=== PATIENT | female | born 1955 | race Two or more races ===

== ENCOUNTER → 2019-12-13 14:52 | Outpatient (BNVA) | payer OTHER, SELFPAY | PROVIDERS: PCP Internal Medicine; Visit Provider Orthopaedic Surgery | DX: Z76.89 Persons encountering health services in other specified circumstances (principal) ==

== ENCOUNTER 2020-01-12 13:10 | Outpatient (REF) | payer OTHER, SELFPAY ==
--- NOTE | 2020-01-12 13:16 | XR_ITS ---
EXAMINATION: XR KNEE, BILATERAL XR KNEE, RIGHT CLINICAL INFORMATION: Primary osteoarthritis of the right knee COMPARISON: 11/25/2019 TECHNIQUE: AP standing view of both knees. Lateral and sunrise views of the right knee. FINDINGS: Right knee: No fracture or subluxation. There is chronic depression of the lateral tibial plateau. Moderate narrowing at the medial and lateral compartments. Severe patellofemoral compartment joint space narrowing laterally. There are prominent tricompartmental marginal osteophytes. No definite joint effusion. Left knee: No fracture or subluxation. Mild medial and lateral compartment joint space narrowing on this frontal view with marginal osteophytes present. 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 Tricompartmental degenerative changes as above.
--- NOTE | 2020-01-12 13:16 | XR_ITS ---
EXAMINATION: XR KNEE, BILATERAL XR KNEE, RIGHT CLINICAL INFORMATION: Primary osteoarthritis of the right knee COMPARISON: 11/25/2019 TECHNIQUE: AP standing view of both knees. Lateral and sunrise views of the right knee. FINDINGS: Right knee: No fracture or subluxation. There is chronic depression of the lateral tibial plateau. Moderate narrowing at the medial and lateral compartments. Severe patellofemoral compartment joint space narrowing laterally. There are prominent tricompartmental marginal osteophytes. No definite joint effusion. Left knee: No fracture or subluxation. Mild medial and lateral compartment joint space narrowing on this frontal view with marginal osteophytes present. 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 Tricompartmental degenerative changes as above.
== END 2020-01-12 13:11 | disposition home or self-care (01) ==
LOC: HO.HOSX 13:10
PROVIDERS: PCP Internal Medicine; Visit Provider Physician Assistant
DX: M17.11 Unilateral primary osteoarthritis, right knee (principal)
CPT/HCPCS: 73560; 73565

== ENCOUNTER 2020-01-16 07:55 | Inpatient (IN) | payer OTHER, SELFPAY ==
[2020-01-09 11:57] VITALS: BP 122/65; PULSE 70; RESP 16; O2SAT 97; BMI 28.5
--- NOTE | 2020-01-09 12:23 | P.CONAN_ITS ---
Documented by User: Marzena Henriquez 01/09/20 12:42 HPI - Anesthesia Eval Consult details Narrative: 64yo F for R TKA PCP cleared [facility] Past Medical History Medical History No significant past medical history Family History Family history of problems with anesthesia: No Surgical History Surgical History H/O colonoscopy History of bunionectomy S/P rotator cuff repair History of Problems with Anesthesia: No Social History Social History Household Members Other:: mother Are you a primary morning caregiver to a significant other at home: No Do you presently have visiting nurse or other home services: No Alcohol intake: current Alcohol intake frequency: holidays/special occasions only Smoking Status: Former smoker Smoking Quit Date: 1985 Use of substances other than those prescribed or required for medical reasons: No Have you been hit, kicked, punched, or otherwise hurt by someone within the past year? If so, by whom?: No Spiritual Healthcare Practices: none Pentecostalism Healthcare Practices: none Cultural Healthcare Practices: none Advance Directives: No Advance Directives Information Provided: No Advance Directives on File: No Recently lost weight without trying: No Narrative Narrative: No recent illness >4 mets with regular activity prior to injury Meds Allergies Allergy/AdvReac Type Severity Reaction Status Date / Time No Known Allergies Allergy Verified 01/09/20 12:12 Home Medications Medication Instructions Recorded Confirmed Type calcium carbonate-vitamin D3 1 tab PO BID 01/09/20 01/09/20 History [Calcium 600 + D(3)] zinc 50 mg PO DAILY 01/09/20 01/09/20 History Exam Exam Date and Time: January 09, 2020 1223 Height,Weight and Vital Signs: Height 5 ft 7 in Weight 82.5 kg Last Vital Signs Pulse 70 01/09/20 11:57 Resp 16 01/09/20 11:57 BP 122/65 01/09/20 11:57 Pulse Ox 97 01/09/20 11:57 Pertinent Lab Results Pertinent Lab Results: OUTSIDE LABS 01/04/20 CBC: WNL BUN/Creat: WNL Lytes: WNL A1C: 5.4% Narrative Narrative: EKG 01/04/20: SR@73 Airway Mallampati Class: I TM Dist: >3cm Neck ROM: Full Loose/Missing/Broken Teeth: Yes (Bilateral upper, 4&13) Heart: RRR Lungs: CTAB Assessment and Plan Assessment Anesthesia Assessment: Anesthesia Plan Discussed and PAT Visit Documented by User: Jacob Molina 01/16/20 09:42 PMFSH Past Medical History Medical History No significant past medical history Surgical History Surgical History H/O colonoscopy History of bunionectomy S/P rotator cuff repair Social History Social History Household Members Other:: mother Are you a primary morning caregiver to a significant other at home: No Do you presently have visiting nurse or other home services: No Alcohol intake: current Alcohol intake frequency: holidays/special occasions only Smoking Status: Former smoker Smoking Quit Date: 1985 Use of substances other than those prescribed or required for medical reasons: No Have you been hit, kicked, punched, or otherwise hurt by someone within the past year? If so, by whom?: No Spiritual Healthcare Practices: none Pentecostalism Healthcare Practices: none Cultural Healthcare Practices: none Advance Directives: No Advance Directives Information Provided: No Advance Directives on File: No Recently lost weight without trying: No Meds Allergies Allergy/AdvReac Type Severity Reaction Status Date / Time No Known Allergies Allergy Verified 01/09/20 12:12 Home Medications Medication Instructions Recorded Confirmed Type calcium carbonate-vitamin D3 1 tab PO BID 01/09/20 01/09/20 History [Calcium 600 + D(3)] zinc 50 mg PO DAILY 01/09/20 01/09/20 History Exam Airway Mallampati Class: III TM Dist: >3cm Neck ROM: Full Heart: RRR Assessment and Plan Assessment Anesthesia Assessment: Anesthesia Plan Discussed Final Anesthetic Review NPO: Yes ASA Class: I Final Preanesthetic Review: Consent Obtained/Reviewed Anesthetic Plan Anesthetic Plan: Spinal and Regional Block Disposition: Standard PACU
[2020-01-09 13:39] LABS: MANUAL DIFF FLAG NO
[2020-01-09 13:52] LABS: Basophils Percent Auto 0.4 % (0-2); Eosinophils Absolute Auto 0.1 X10*3/uL (0.0-0.4); Eosinophils Percent Auto 1.4 % (0-4); Hematocrit 39.5 % (37-47); Hemoglobin 12.4 g/dl (12.0-16.0); Imm Gran Abs Auto 0.01 X10*3/uL (0.00-0.03); Imm Gran Pct Auto 0.1 % (0.0-0.4); Lymphocytes Absolute Auto 2.8 X10*3/uL (1.2-4.9); Lymphocytes Percent Auto 39.8 % (20-40); Mean Corpuscular HGB Conc 31.4 g/dl (31.0-35.0); Mean Corpuscular Hemoglobin 26.3 pg (27.0-33.0); Mean Corpuscular Volume 83.9 fL (80-98); Mean Platelet Volume 11.4 fL (9.4-12.3); Monocytes Absolute Auto 0.5 X10*3/uL (0.1-1.2); Monocytes Percent Auto 6.8 % (2-11); Neutrophils Absolute Auto 3.6 X10*3/uL (2.0-8.3); Neutrophils Percent Auto 51.5 % (45-73); Platelet Count 215 X10*3/uL (160-400); Red Blood Count 4.71 X10*6/uL (4.20-5.50); Red Cell Distribution Width 12.9 % (11.0-16.0)
[2020-01-09 14:28] LABS: Anion Gap 13 (12-20); Blood Urea Nitrogen 13 mg/dL (9-16); Carbon Dioxide 26 mmol/L (22-29); Chloride 104 mmol/L (96-108); Estimated Glomerular Filt Rate > 60; Glucose Random 95 mg/dL (60-115); Sodium 139 mmol/L (135-145)
[2020-01-09 14:33] LABS: MRSA Nasal PCR NEGATIVE (Negative); SA Nasal PCR NEGATIVE (Negative)
[2020-01-16] VITALS (15 sets, daily range): BP systolic 84–124; BP diastolic 39–60; PULSE 59–73; RESP 14–18; TEMP 35.8–36.3; O2SAT 97–100
--- NOTE | 2020-01-16 07:32 | MHC.SHP ---
Pre-Procedural Eval Section A The patient is an INPATIENT: No Changes since office visit: Yes Cold of Flu in the past 2 weeks, Yes New Medical Problems, Yes Changes in Medication and Yes Patient answered all questions Section B Chief Complaint: Knee Osteoarthritis Allergies: Allergies Allergy/AdvReac Type Severity Reaction Status Date / Time No Known Allergies Allergy Verified 01/09/20 12:12 Plan Patient has been examined and remains a candidate for the planned procedure
[2020-01-16] MEDS: Gabapentin 600 MG TABLET PO (08:21)
[2020-01-16] MEDS: Lactated Ringers 1,000 ML 100 ML IVCONT ×2 (08:42→14:59)
[2020-01-16] MEDS: ceFAZolin Sodium/Dextrose,Iso 2 GM/50 ML PIGGYBACK IV ×2 (08:42→15:09)
[2020-01-16 08:47] LABS: COVID-19 Test Negative (Negative)
--- NOTE | 2020-01-16 11:36 | PM.PRCOR ---
Brief Operative Note Date of procedure: 01/16/20 Pre-op diagnosis: oa right knee post lateral tibial plateau fracture Post-op diagnosis: same Procedure: left tka with bone graft Anesthesia: regional and spinal Surgeon: Rick Guillory [employer] Panels: Connie Ann Estimated blood loss (mL): 50 Condition: stable Disposition: PACU
[2020-01-16] MEDS: Ketorolac Tromethamine 15 MG/ML VIAL IVPUSH ×2 (15:05→21:55)
[2020-01-16] MEDS: oxyCODONE HCl Immed Release 5 MG TABLET 10 MG PO ×2 (15:09→21:54)
[2020-01-16] MEDS: Acetaminophen 325 MG TABLET 650 MG PO ×2 (15:09→21:54)
--- NOTE | 2020-01-16 16:05 | MHC.CM.PN ---
NURSE WEIGHT CONTROL ENGINEER NOTE ELECTRONIC MEDICAL RECORD REVIEWED ALONG WITH CASE DISCUSSED WITH STAFF BASSAM , MET WITH PATIWENT AND EXPLAINED THE ROLE OF THE NURSE WEIGHT CONTROL ENGINEER IN THE TRANSITION FRO THE HOSPITA TO HOME , EDUCATED ABUT THE IMPRTANCE F THE HAVING A HEALTH CARE PROXY. 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 AFTER REVIEW OF THE VNA AGENCY LIST SHE CHOSE THE [facility]
[2020-01-17] VITALS (9 sets, daily range): BP systolic 92–103; BP diastolic 40–58; PULSE 67–80; RESP 16–78; TEMP 35.9–36.8; O2SAT 94–100
[2020-01-17] MEDS: Lactated Ringers 1,000 ML 100 ML IVCONT ×2 (00:46→21:32)
[2020-01-17] MEDS: Acetaminophen 325 MG TABLET 650 MG PO ×4 (03:20→21:31)
[2020-01-17] MEDS: oxyCODONE HCl Immed Release 5 MG TABLET 10 MG PO ×4 (03:24→21:31)
[2020-01-17] MEDS: Ketorolac Tromethamine 15 MG/ML VIAL IVPUSH ×4 (03:24→21:31)
--- NOTE | 2020-01-17 07:00 | XR_ITS ---
EXAMINATION: XR KNEE, RIGHT CLINICAL INFORMATION: Postoperative COMPARISON: 01/12/2020 TECHNIQUE: Two views of the right knee. FINDINGS: There is a total right knee arthroplasty. The distal femoral component articulates appropriately with the tibial plateau and patellar components. No periprosthetic lucency or fracture. Postoperative soft tissue gas is noted. Joint space gas present. Anterior skin ada. XR/XR knee RT 2V IMPRESSION: Total right knee arthroplasty in typical positioning and alignment.
[2020-01-17 07:03] LABS: Hematocrit 31.2 % (37-47); Hemoglobin 9.9 g/dl (12.0-16.0)
--- NOTE | 2020-01-17 07:12 | P.CDIC_ITS ---
CDI Concurrent Query Service Date: 01/17/20 Documentation Clarification: Please clarify if you are treating a proba ble/suspected/likely or confirmed: Please confirm laterality of procedure: Right TKA with bone graft Left TKA with bone graft PLEASE DO NOT DELETE/MODIFY EXISTING CONTENT Additional information is needed in order to code to the highest accuracy and appropriate Severity of Illness (SOI). Please clarify the information noted below in your progress notes and discharge summary. Risk Factors/Clinical Indicators/Treatments 64 year old female admitted for orthopedic surgery on 01/16/20. Per Brief Op Note: Pre-op Diagnosis: OA right knee post lateral tibial plateau fracture Post-op Diagnosis:same Procedure: Left TKA with bone graft CDS: Yamileth Mkceon RN Contact Number: [phone] Please Review the information above and exercise your independent professional judgment in responding to the query. If you concur, pleas document in the PROGRESS NOTES and DISCHARGE SUMMARY. If you do not agree with the query, please document in the query above. THIS QUERY IS PART OF THE PERMANENT MEDICAL RECORD
--- NOTE | 2020-01-17 09:26 | HO.POSTANES ---
Post Anesthesia Evaluation Post Anesthesia Evaluation Vital Signs: Vital Signs Temp Pulse Resp BP Pulse Ox 01/17/20 08:36 96.8 F 78 18 102/44 L 100 01/17/20 04:30 94/50 L 01/17/20 04:00 98.2 F 68 16 94 01/17/20 00:54 102/54 L 01/17/20 00:00 97.6 F 79 16 94/47 L 97 Anesthesia: Spinal Mental Status: Awake Pain Control: Satisfactory Nausea/Vomiting: None Hydration: Adequate Anesthesia-Related Issues: No Anes. Related Issues
--- NOTE | 2020-01-17 10:00 | OP_ITS ---
SURGEON: Rick Guillory MD PREOPERATIVE DIAGNOSIS: Osteoarthritis post lateral tibial plateau fracture, right knee. POSTOPERATIVE DIAGNOSIS: Osteoarthritis post lateral tibial plateau fracture, right knee. PROCEDURE PERFORMED: Right total knee arthroplasty - Ronak NexGen CR-Flex GSF size F right femur, 5 x 12 mm monoblock tibial component, 32 mm monoblock patellar component. ESTIMATED BLOOD LOSS: COMPLICATIONS: ANESTHESIA: ASSISTANTS: AARIT Alcazar. SPECIMENS: CLINICAL NOTE: This very pleasant lady comes in today in regard to her right knee. She suffered a tibial plateau fracture approximately two and a half months ago. It was a centrally depressed fracture on the lateral side. However, she had evidence of significant osteoarthritis and was already having problems with her knee, and therefore, it was elected not to fix the fracture, allow it to heal, and subsequently presents to do a total knee arthroplasty. Therefore after explaining the risks, benefits, and alternatives and answering all her questions, it was mutually agreed upon to carry out the following procedure. OPERATIVE DETAILS: Under a saphenous regional block and spinal anesthetic, the patient was placed supine on the operating table. Pneumatic tourniquet cuff was placed around the upper right thigh, inflated to 300 mmHg at the beginning of the case. The right knee was then prepped and draped in standard fashion with the right leg free. Surgical time-out was then performed, patient was identified, procedure confirmed, site confirmed. Medical analogy and history reviewed. Preoperative antibiotics given. Standard DVT prophylaxis in place. All other items were discussed and agreed upon. Tranexamic acid was given as well. Standard midline approach to the knee was carried out, taken down through subcutaneous tissues. Hemostasis was achieved along the way using electrocautery, brought down to the level of the extensor mechanism, where a medial parapatellar arthrotomy in a subvastus technique was performed. Patella was retracted into the lateral gutter. Soft tissues elevated from the anterior aspect of the femur. Similarly at the tibial side soft tissues elevated subperiosteally protecting medial-sided soft tissues with portion of the meniscus removed. On the lateral side, the lateral meniscus was partially excised, it was actually incorporated into the fracture site. The rim was at the proper height, it was centrally depressed. Soft tissue elevated from the lateral aspect as well protecting the lateral-sided soft tissues. The ACL was resected. We turned our attention to the femur. Intramedullary hole was established in standard fashion. The cutting guide was set for 5 degrees of valgus with a standard cut. The surface was resected flat. It then sized to a size F. The 3-degree external rotation pins were set. The all-in-one cutting guide for the F was placed over the femur and centered. It was then used to make an anterior and anterior chamfer, posterior and posterior chamfer, and patellar recess cuts. The lug holes were made. The guide was removed. Bony fragments were removed. We turned our attention to the tibia. The extramedullary guide was set along the anterior aspect of the tibia in standard fashion, brushing off the tibial tubercle, subcutaneous port of the tibia, and the middle of the ankle. The slope was set. It was set for a resection of approximately 8-10 mm off the medial side. The surface was then resected flat. This left just a small 1-2 mm depression in the central portion of the tibia. A trial reduction was then performed using the size 5 base plate, aligned with the extramedullary guided pin with a 12 mm insert and a size F CR flex GSF femur. This demonstrated excellent alignment, full range of motion, stable mediolaterally at 0, 30, 60, and 90 degrees of flexion. Turning our attention to the patella, it was grade 4, worn out. Osteophytes were removed circumferentially. Soft tissue elevated circumferentially. It was then resected flat. It sized to a 32. The size 32 patella guide was used to fit nicely. The lug hole was made. The trial component fit nicely and the patella tracked centrally and therefore the size F CR flex GSF femur for the right side along with the 5 x 12 mm monoblock tibial component and the 32 mm monoblock patellar component were selected and brought up the table. The trial components were all removed after the peg holes of the tibia was made, though the fracture was minimal, the residual portion in the center of the component, bone graft was packed into this PEG hole as well as to the level of the surface. The tourniquet was let down. Total tourniquet time of 47 minutes. The lateral genicular artery was identified and cauterized. The knee was thoroughly irrigated. The permanent components were brought up to the table. The tibia was press fit nicely and securely into place, followed by the femur, followed by the patella. The knee was then placed through range of motion, had full extension, full flexion, stable mediolaterally at 0, 30, 60, and 90 degrees of flexion. The patella tracked centrally and therefore proceeded to closure. Wound was thoroughly irrigated. The extensor mechanism closed with #2 Quill suture. Skin approximated using interrupted 2-0 Dexon. Skin was closed with ada. Sterile dressing was then applied. The patient was then transferred supine to the room bed, then taken to recovery room in good condition. Intraoperatively, a second unit of tranexamic acid was given at the time of closure. Intraoperatively, there was approximately 50 mL blood loss. No intraoperative transfusions or complications. MD FRANCO Cortez/ALFREDO / [id number]
--- NOTE | 2020-01-17 10:07 | P.PNOP_ITS ---
Subjective Subjective Interval history: POD1 s/p RTKA. Patient resting comforably in bed. No overnight events. Pain is well managed. She has been out of bed to use the restroom. Denies SOB and chest pain. Physical Exam Vital Signs: Vital Signs: Last Vital Signs Temp 96.8 F 01/17/20 08:36 Pulse 78 01/17/20 08:36 Resp 18 01/17/20 08:36 BP 102/44 L 01/17/20 08:36 Pulse Ox 100 01/17/20 08:36 Body Mass Index 28.5 Const: General: cooperative, healthy appearing and no acute distress Resp: Effort & Inspection: normal respiratory effort and able to speak in complete sentences Cardio: Rate: regular rate Peripheral pulses: Peripheral pulses 2+ throughout GI: Inspection: Yes normal to inspection Palpation (GI): Soft to palpation Skin: General skin exam: no rashes or lesions noted Extrem: Other: No ecchymosis, redness, or drainage. Dressing is clean, dry, and intact. NVI. Progress Note: A&P Assessment and plan (1) Status post right knee replacement: Status: Acute Assessment and Plan: Continue pain mgmnt Begin ASA for dvt ppx today begin PT for RT TKA Dispo planning-Pending PT eval, pain mgmnt Fall Risk Details Current Medications: Current Medications Generic Name Dose Route Start Last Admin Trade Name Freq PRN Reason Stop Dose Admin Acetaminophen 650 mg 01/16/20 14:38 01/17/20 09:02 Acetaminophen 325 Mg Tablet PO 650 mg Q6H LYNN Administration Aspirin 325 mg 01/17/20 22:00 Aspirin 325 Mg Tablet PO BID LYNN Lactated Ringer's 1,000 mls @ 100 mls/hr 01/16/20 08:00 01/17/20 09:56 Lr IVCONT 100 mls/hr .Q10H LYNN Infusion Ketorolac Tromethamine 15 mg 01/16/20 16:00 01/17/20 09:02 Ketorolac Tromethamine 15 Mg/Ml Vial IVPUSH 01/21/20 10:01 15 mg Q6H LYNN Administration Morphine Sulfate 2 mg 01/16/20 14:38 Morphine Sulfate 2 Mg/Ml Cartridge IVPUSH Q2H PRN Pain, Severe (Pain Scale 7-10) Naloxone HCl 0.2 mg 01/16/20 14:38 Naloxone Hcl 0.4 Mg/Ml Vial IVPUSH Q2M PRN Excessive sedation or RR < 8 Ondansetron HCl 4 mg 01/16/20 14:38 Ondansetron Hcl 4 Mg/2 Ml Vial IVPUSH Q8H PRN Nausea and Vomiting Oxycodone HCl 10 mg 01/16/20 16:00 01/17/20 09:01 Oxycodone Hcl Immed Release 5 Mg Tablet PO 10 mg Q6H LYNN Administration Sodium Chloride 3 ml 01/16/20 16:00 01/17/20 09:02 0.9 % Sodium Chloride Flush 3 Ml Syringe IVFLUSH Not Given QSHIFT LYNN Time Spent With Patient Time: Total time spent is greater than 50% in coordination of care (as document ed) at patient's floor/unit and/or counseling patient: Time with patient: 15 - 24 minutes Procedures Abscess I/D Date of Service: 01/17/20
[2020-01-17] MEDS: Aspirin 325 MG TABLET PO (21:30)
[2020-01-17] MEDS: 0.9 % Sodium Chloride Flush 3 ML SYRINGE IVFLUSH (21:32)
[2020-01-18 03:52] VITALS: BP 121/55; PULSE 86; RESP 16; TEMP 36; O2SAT 100
[2020-01-18] MEDS: oxyCODONE HCl Immed Release 5 MG TABLET 10 MG PO ×2 (04:34→09:00)
[2020-01-18] MEDS: Acetaminophen 325 MG TABLET 650 MG PO ×2 (04:34→09:00)
[2020-01-18] MEDS: Ketorolac Tromethamine 15 MG/ML VIAL IVPUSH ×2 (04:35→09:01)
[2020-01-18 07:59] VITALS: BP 101/46; PULSE 77; RESP 18; TEMP 36.1; O2SAT 99
[2020-01-18] MEDS: Aspirin 325 MG TABLET PO (09:00)
--- NOTE | 2020-01-25 09:56 | PM.DS ---
DS: Providers Provider Date of admission: 01/16/20 07:55 Primary care physician: Debby Welsh MD DS: Diagnosis Discharge Diagnosis (1) Status post right knee replacement: Status: Acute Problem details: Ms. Isha Daniels is a 64-year-old female who presented to the office with a right knee injury. She sustained a fall which resulted in a tibial plateau fracture. She also had extensive osteoarthritis of the right knee. The decision was made to allow the tibial plateau fracture to heal and then pursue right total knee arthroplasty. DS: Medications Discharge Medications Home Medications: Home Medications Medication Instructions Recorded Confirmed calcium carbonate-vitamin D3 1 tab PO BID 01/09/20 01/09/20 [Calcium 600 + D(3)] zinc 50 mg PO DAILY 01/09/20 01/09/20 Previous Rx's Medication Instructions Recorded acetaminophen 650 mg PO Q6H 30 Days #240 tab 01/18/20 aspirin 325 mg PO BID 14 Days #28 tab 01/18/20 oxycodone 10 mg PO Q6H 7 Days #28 tab 01/18/20 DS: Summary Hospital Course Hospital Course: Ms Vieira underwent a successful right total knee arthroplasty she was transferred to PACU and then to the floor where she recovered during her stay her vitals were stable afebrile at 97.0 labs unremarkable hemoglobin of 9.9 hematocrit 31.2. Postop day 1 she was started on aspirin 325 mg p.o. b.i.d. for DVT prophylaxis she also received physical therapy services twice a day prior to discharge her Aquacel dressing was changed incision clean dry and intact oxygen applied and plan is to be discharged home with VNA services. Time Spent with Patient Time attestation: Total time spent providing and/or coordinating discharge services: Physical Exam Vital Signs: Vital Signs: Last Vital Signs Temp 97.0 F 01/18/20 07:59 Pulse 77 01/18/20 07:59 Resp 18 01/18/20 07:59 BP 101/46 L 01/18/20 07:59 Pulse Ox 99 01/18/20 07:59 Body Mass Index 28.5 Const: General: cooperative, healthy appearing and no acute distress Resp: Effort & Inspection: normal respiratory effort and able to speak in complete sentences Cardio: Rate: regular rate Peripheral pulses: Peripheral pulses 2+ throughout GI: Inspection: Yes normal to inspection Palpation (GI): Soft to palpation Skin: General skin exam: no rashes or lesions noted Extrem: Other: Incision clean dry and intact. [place] intact. No erythema or drainage. DS: Data Data Completed and Pending Completed studies during hospitalization [Text1]: Pending at discharge 01/16/20 11:19 Surgical [PTH] Routine Procedures Replacement of Right Knee Joint with Synthetic Substitute, Uncemented, Open Approach (01/16/20) Supplement Right Tibia with Autologous Tissue Substitute, Open Approach (01/16/20) Labs on day of discharge: 01/09/20 12:43 MRSA Nasal Screen Routine 01/09/20 13:21 Type and Screen Routine Basic Metabolic Panel Routine Complete Blood Count Auto Diff Routine 01/16/20 07:46 Gabapentin [Neurontin] 600 mg PO PREOP ONE 01/16/20 07:58 ceFAZolin Sodium/Dextrose,Iso [Ancef] 2 gm in 50 ml IV PREOP 01/16/20 08:00 COVID-19 ID NOW (Chung) Stat Lactated Ringers [Lr] 1,000 ml IVCONT 100 mls/hr 01/16/20 08:05 Gabapentin [Neurontin] 300 mg .ROUTE .STK-MED ONE ceFAZolin Sodium/Dextrose,Iso [Ancef] 2 gm in 50 ml .ROUTE As directed 01/16/20 09:04 Bupivacaine MPF 0.5 % [Sensorcaine MPF 0.5% 30 ML] 30 ml .ROUTE .STK-MED ONE Lidocaine HCl 2 % MPF [Xylocaine 2 % MPF] 5 ml .ROUTE .STK-MED ONE Midazolam HCl/PF [Versed] 2 mg .ROUTE .STK-MED ONE 01/16/20 09:39 Vital Signs Q1H Acetaminophen [Tylenol] 650 mg PO ONCE PRN ondansetron HCL [Zofran] 4 mg IVPUSH ONCE PRN 01/16/20 10:14 propofoL [Diprivan] 200 mg IVPUSH .STK-MED ONE 01/16/20 10:18 Tranexamic Acid [Cyklokapron] 1,000 mg .ROUTE .STK-MED ONE 01/16/20 11:19 Surgical [PTH] Routine 01/16/20 11:30 Transfer Order Routine 01/16/20 11:33 Ketorolac Tromethamine [Toradol] 30 mg .ROUTE .STK-MED ONE 01/16/20 14:38 Acetaminophen [Tylenol] 650 mg PO Q6H Morphine Sulfate 2 mg IVPUSH Q2H PRN Naloxone HCl [Narcan] 0.2 mg IVPUSH Q2M PRN ondansetron HCL [Zofran] 4 mg IVPUSH Q8H PRN 01/16/20 14:38 Apply ice pack .as needed Incentive Spirometry NOW Reinforce wound dressing NEEDED Straight Urinary Catheterization NEEDED Vital Signs Q4H Occupational Therapy Eval & Treat NEEDED Physical Therapy Eval & Treat NOW 01/16/20 15:00 ceFAZolin Sodium/Dextrose,Iso [Ancef] 2 gm in 50 ml IV POSTOP 01/16/20 16:00 0.9 % Sodium Chloride Flush [NS Flush] 3 ml IVFLUSH QSHIFT Ketorolac Tromethamine [Toradol] 15 mg IVPUSH Q6H oxyCODONE HCl Immed Release [Roxicodone] 10 mg PO Q6H 01/16/20 16:43 Code Status Routine 01/17/20 06:32 Hemoglobin and Hematocrit DAILY@0600 01/17/20 07:00 XR knee RT 2V Routine 01/17/20 22:00 Aspirin 325 mg PO BID Laboratory Last Values WBC 7.0 X10*3/uL (4.8-10.8) 01/09/20 13:21 RBC 4.71 X10*6/uL (4.20-5.50) 01/09/20 13:21 Hgb 9.9 g/dl (12.0-16.0) L D 01/17/20 06:32 Hct 31.2 % (37-47) L D 01/17/20 06:32 MCV 83.9 fL (80-98) 01/09/20 13:21 MCH 26.3 pg (27.0-33.0) L 01/09/20 13:21 MCHC 31.4 g/dl (31.0-35.0) 01/09/20 13:21 RDW 12.9 % (11.0-16.0) 01/09/20 13:21 Plt Count 215 X10*3/uL (160-400) 01/09/20 13:21 MPV 11.4 fL (9.4-12.3) 01/09/20 13:21 Immature Gran % (Auto) 0.1 % (0.0-0.4) 01/09/20 13:21 Neut % (Auto) 51.5 % (45-73) 01/09/20 13:21 Lymph % (Auto) 39.8 % (20-40) 01/09/20 13:21 [place] % (Auto) 6.8 % (2-11) 01/09/20 13:21 Eos % (Auto) 1.4 % (0-4) 01/09/20 13:21 Baso % (Auto) 0.4 % (0-2) 01/09/20 13:21 Lymph # (Auto) 2.8 X10*3/uL (1.2-4.9) 01/09/20 13:21 [place] # (Auto) 0.5 X10*3/uL (0.1-1.2) 01/09/20 13:21 Eos # (Auto) 0.1 X10*3/uL (0.0-0.4) 01/09/20 13:21 Baso # (Auto) 0.0 X10*3/uL (0.0-0.2) 01/09/20 13:21 Abs Immat Gran (auto) 0.01 X10*3/uL (0.00-0.03) 01/09/20 13:21 Absolute Neuts (auto) 3.6 X10*3/uL (2.0-8.3) 01/09/20 13:21 Absolute Nucleated RBC 0.000 X10*3/uL (0.0-0.012) 01/09/20 13:21 Nucleated RBC % (auto) 0.0 /100WBC (0.0-0.2) 01/09/20 13:21 Sodium 139 mmol/L (135-145) 01/09/20 13:21 Potassium 4.0 mmol/l (3.3-5.1) 01/09/20 13:21 Chloride 104 mmol/L (96-108) 01/09/20 13:21 Carbon Dioxide 26 mmol/L (22-29) 01/09/20 13:21 Anion Gap 13 (12-20) 01/09/20 13:21 BUN 13 mg/dL (9-16) 01/09/20 13:21 Creatinine 0.74 mg/dL (0.5-1.4) 01/09/20 13:21 Estim Creat Clear Calc 87.0 01/09/20 13:21 Estimated GFR > 60 01/09/20 13:21 Random Glucose 95 mg/dL (60-115) 01/09/20 13:21 Calcium 9.0 mg/dL (8.4-10.2) 01/09/20 13:21 Nasal Screen MRSA (PCR) NEGATIVE (Negative) 01/09/20 12:43 Nasal S. aureus Screen NEGATIVE (Negative) 01/09/20 12:43 Nasal MRSA/S.aureus Interp SEE NOTE 01/09/20 12:43 COVID-19 ([facility]RAIG) Negative (Negative) 01/16/20 08:00 COVID-19 Clin Com See Note 01/16/20 08:00 Blood Type O Positive 01/09/20 13:21 Antibody Screen NEGATIVE 01/09/20 13:21 Discharge Plan Discharge Patient Disposition: Home Health Service Referrals: Debby Welsh MD [Primary Care Provider] - Discharge Medications: New acetaminophen 325 mg Tablet 650 mg PO Q6H 30 Days Qty: 240 RF: 0 aspirin 325 mg Tablet 325 mg PO BID 14 Days Qty: 28 RF: 0 oxycodone 10 mg tablet 10 mg PO Q6H 7 Days Qty: 28 RF: 0 Continued zinc 50 mg Capsule 50 mg PO DAILY RF: 0 calcium carbonate-vitamin D3 [Calcium 600 + D(3)] 600 mg(1,500mg) -400 unit Tablet 1 tab PO BID RF: 0 Discharge Orders: Discharge Order (Routine); Ordered 01/18/20 Ordered By: Connie Ann Diet: regular diet Activity on Discharge: Use cane or walker Discharge Date/Time: 01/18/20 12:19 Activity Restrictions/Additional Instructions: Physical Therapy for ROM 0-120, quad strength, gait training . Use walker for ambulation Limit stair climbing, No shower, No tub bath, No driving Continue anticoagulant--asa for 2 weeks Keep Aquacel dressing clean, dry and intact. Follow up with orthopedics in 2 weeks Visit Report Forms: Patient Portal Discharge page Care Plan Goals: Restore function of right knee Health Concerns: none Plan of Treatment: Physical Therapy Pain management DVT prophylaxis
== END 2020-01-18 12:19 | disposition home health service (06) | DRG 470 ==
LOC: HO.SSSA 07:57 → HO.S3 13:47
PROVIDERS: Nurse Practitioner; Physician Assistant; Admitting Provider Orthopaedic Surgery; PCP Internal Medicine; Visit Provider Orthopaedic Surgery
PROC: 0SRC0JA Replacement of Right Knee Joint with Synthetic Substitute, Uncemented, Open Approach (ICD-10-PCS; CPT 27447; principal; 2020-01-16 09:30)
DX: M17.11 Unilateral primary osteoarthritis, right knee (principal); S82.201A Unspecified fracture of shaft of right tibia, initial encounter for closed fracture; Z20.828 Contact with and (suspected) exposure to other viral communicable diseases; Z79.899 Other long term (current) drug therapy; X58.XXXA Exposure to other specified factors, initial encounter; Y93.9 Activity, unspecified; Y92.9 Unspecified place or not applicable; Y99.9 Unspecified external cause status
CPT/HCPCS: 36415; 73560; 80048; 85014; 85018; 85025; 86850; 86900; 86901; 87635; 87640; 87641; 88304; 88311; 97110; 97116; 97161; 97165; 97530; C1776; J0690; J1885; J2250

== ENCOUNTER → 2020-02-01 13:29 | Outpatient (BNVA) | payer OTHER, SELFPAY | PROVIDERS: Visit Provider Physician Assistant | DX: Z76.89 Persons encountering health services in other specified circumstances (principal) ==

== ENCOUNTER → 2020-02-29 10:32 | Outpatient (BNVA) | payer OTHER, SELFPAY | PROVIDERS: Visit Provider Orthopaedic Surgery | DX: Z76.89 Persons encountering health services in other specified circumstances (principal) ==

== ENCOUNTER 2020-05-09 12:17 | Outpatient (REF) | payer OTHER, SELFPAY ==
--- NOTE | ~2020-05-09 | XR_ITS ---
EXAMINATION: XR AP BILATERAL KNEE STANDING AND RIGHT KNEE CLINICAL INFORMATION: Right knee pain. COMPARISON: Right knee 01/17/2020. TECHNIQUE: AP bilateral knee standing. Right knee lateral view. FINDINGS: AP Bilateral Knee: There is a total right knee arthroplasty with prosthetic components in satisfactory alignment. No bony loosening seen. There is significant loss of medial and lateral compartment joint space with periarticular spurring. Right Knee: There is a total right knee arthroplasty with prosthetic components in satisfactory alignment. The soft tissues are normal. There is mild suprapatellar joint effusion. There is superior patellar spurring. XR/XR knee RT 2V IMPRESSION: Total right knee arthroplasty with prosthetic components in satisfactory alignment. No prosthetic loosening visualized. There is mild joint effusion seen. Small superior patellar enthesophytes. Significant degenerative arthritic changes left knee joint.
--- NOTE | ~2020-05-09 | XR_ITS ---
EXAMINATION: XR AP BILATERAL KNEE STANDING AND RIGHT KNEE CLINICAL INFORMATION: Right knee pain. COMPARISON: Right knee 01/17/2020. TECHNIQUE: AP bilateral knee standing. Right knee lateral view. FINDINGS: AP Bilateral Knee: There is a total right knee arthroplasty with prosthetic components in satisfactory alignment. No bony loosening seen. There is significant loss of medial and lateral compartment joint space with periarticular spurring. Right Knee: There is a total right knee arthroplasty with prosthetic components in satisfactory alignment. The soft tissues are normal. There is mild suprapatellar joint effusion. There is superior patellar spurring. XR/XR knee standing BI IMPRESSION: Total right knee arthroplasty with prosthetic components in satisfactory alignment. No prosthetic loosening visualized. There is mild joint effusion seen. Small superior patellar enthesophytes. Significant degenerative arthritic changes left knee joint.
== END 2020-05-09 12:18 | disposition home or self-care (01) ==
LOC: HO.HOSX 12:17
PROVIDERS: PCP Internal Medicine; Visit Provider Orthopaedic Surgery
DX: Z47.1 Aftercare following joint replacement surgery (principal); Z96.651 Presence of right artificial knee joint
CPT/HCPCS: 73560; 73565

== ENCOUNTER → 2020-08-22 11:02 | Outpatient (BNVA) | payer OTHER, SELFPAY | PROVIDERS: Visit Provider Orthopaedic Surgery ==

== ENCOUNTER 2021-02-13 12:31 | Outpatient (REF) | payer OTHER, SELFPAY ==
--- NOTE | ~2021-02-13 | XR_ITS ---
EXAMINATION: XR BOTH KNEES AP STANDING XR RIGHT KNEE, 2 VIEWS CLINICAL INFORMATION: Pain in right knee. COMPARISON: Most recent right knee radiograph dated 05/09/2020. TECHNIQUE: Standing AP view of both knees and lateral and sunrise views of the right knee. FINDINGS: Right knee: Total right knee arthroplasty. No acute hardware or osseous fracture. No perihardware lucency to suggest loosening or infection. The arthroplasty is redemonstrated within the lateral aspect of the patellofemoral compartment. There is persistent medial patellofemoral joint space narrowing with mild subchondral sclerosis of the patella. No significant joint effusion. No abnormal soft tissue calcification. Left knee: Medial and lateral compartment joint space narrowing with tricompartmental marginal osteophytes, unchanged. No lytic or blastic osseous lesion. XR/XR knee RT 2V IMPRESSION: Total right knee arthroplasty without evidence of hardware complication. Persistent medial patellofemoral joint space narrowing with mild subchondral sclerosis. Tricompartmental left knee osteoarthritis, unchanged.
--- NOTE | ~2021-02-13 | XR_ITS ---
EXAMINATION: XR BOTH KNEES AP STANDING XR RIGHT KNEE, 2 VIEWS CLINICAL INFORMATION: Pain in right knee. COMPARISON: Most recent right knee radiograph dated 05/09/2020. TECHNIQUE: Standing AP view of both knees and lateral and sunrise views of the right knee. FINDINGS: Right knee: Total right knee arthroplasty. No acute hardware or osseous fracture. No perihardware lucency to suggest loosening or infection. The arthroplasty is redemonstrated within the lateral aspect of the patellofemoral compartment. There is persistent medial patellofemoral joint space narrowing with mild subchondral sclerosis of the patella. No significant joint effusion. No abnormal soft tissue calcification. Left knee: Medial and lateral compartment joint space narrowing with tricompartmental marginal osteophytes, unchanged. No lytic or blastic osseous lesion. XR/XR knee standing BI IMPRESSION: Total right knee arthroplasty without evidence of hardware complication. Persistent medial patellofemoral joint space narrowing with mild subchondral sclerosis. Tricompartmental left knee osteoarthritis, unchanged.
== END 2021-02-13 12:32 | disposition home or self-care (01) ==
LOC: HO.HOSX 12:31
PROVIDERS: Visit Provider Physician Assistant
DX: M25.561 Pain in right knee (principal); M25.562 Pain in left knee; Z96.651 Presence of right artificial knee joint
CPT/HCPCS: 73560; 73565

== ENCOUNTER 2022-02-13 12:08 | Outpatient (REF) | payer OTHER, SELFPAY ==
--- NOTE | ~2022-02-13 | XR_ITS ---
EXAMINATION: BILATERAL KNEE STANDING AND RIGHT KNEE. CLINICAL INFORMATION: Pain right knee COMPARISON: None TECHNIQUE: AP bilateral knee 1 view and right knee 2 views. 2 views FINDINGS: AP bilateral knee: There is mild reduction in medial and lateral compartment joint space with medial and lateral periapical spurring left knee. There is a total right knee prosthesis. No loose body visualized. Right knee: There is a total right knee prosthesis with prosthetic components in satisfactory position. No visible acute fracture, dislocation or subluxation seen. No abnormal joint effusion. There is mild anterior superior patellar spurring. There is mild anterior infrapatellar superficial soft tissue swelling. XR/XR knee RT 2V IMPRESSION: 1. Total right knee prosthesis with prosthetic components in satisfactory position. There is mild anterior superior patellar spurring. No periprosthetic fracture. There is mild anterior infrapatellar superficial soft tissue swelling. 2. Mild degenerative changes medial and lateral compartment left knee. No acute fracture, dislocation or subluxation seen.
--- NOTE | ~2022-02-13 | XR_ITS ---
EXAMINATION: BILATERAL KNEE STANDING AND RIGHT KNEE. CLINICAL INFORMATION: Pain right knee COMPARISON: None TECHNIQUE: AP bilateral knee 1 view and right knee 2 views. 2 views FINDINGS: AP bilateral knee: There is mild reduction in medial and lateral compartment joint space with medial and lateral periapical spurring left knee. There is a total right knee prosthesis. No loose body visualized. Right knee: There is a total right knee prosthesis with prosthetic components in satisfactory position. No visible acute fracture, dislocation or subluxation seen. No abnormal joint effusion. There is mild anterior superior patellar spurring. There is mild anterior infrapatellar superficial soft tissue swelling. XR/XR knee standing BI IMPRESSION: 1. Total right knee prosthesis with prosthetic components in satisfactory position. There is mild anterior superior patellar spurring. No periprosthetic fracture. There is mild anterior infrapatellar superficial soft tissue swelling. 2. Mild degenerative changes medial and lateral compartment left knee. No acute fracture, dislocation or subluxation seen.
== END 2022-02-13 12:09 | disposition home or self-care (01) ==
LOC: HO.HOSX 12:08
PROVIDERS: Visit Provider Physician Assistant
DX: M25.562 Pain in left knee (principal); M25.561 Pain in right knee
CPT/HCPCS: 73560; 73565

== ENCOUNTER 2023-02-13 07:54 | Outpatient (REF) | payer MEDICARE, OTHER, SELFPAY ==
--- NOTE | ~2023-02-13 | XR_ITS ---
EXAMINATION: XR KNEE, RIGHT XR KNEE, STANDING, BILATERAL CLINICAL INFORMATION: Pain right knee COMPARISON: 02/13/2022 TECHNIQUE: AP view of bilateral knees. Lateral and sunrise views of the right knee. FINDINGS: AP BILATERAL KNEE: Bones are diffusely demineralized. Moderate medial and lateral compartment space narrowing, greater laterally, with prominent marginal osteophytes. Right total knee prosthesis. RIGHT KNEE: Redemonstration of total right knee prosthesis. Hardware appears intact. Alignment maintained. Anterior/superior patellar spurring. Trace joint effusion. XR/XR knee RT 2V IMPRESSION: 1. Right total knee prosthesis. Hardware appears intact. 2. Moderate degenerative changes on single AP view of the left knee.
--- NOTE | ~2023-02-13 | XR_ITS ---
EXAMINATION: XR KNEE, RIGHT XR KNEE, STANDING, BILATERAL CLINICAL INFORMATION: Pain right knee COMPARISON: 02/13/2022 TECHNIQUE: AP view of bilateral knees. Lateral and sunrise views of the right knee. FINDINGS: AP BILATERAL KNEE: Bones are diffusely demineralized. Moderate medial and lateral compartment space narrowing, greater laterally, with prominent marginal osteophytes. Right total knee prosthesis. RIGHT KNEE: Redemonstration of total right knee prosthesis. Hardware appears intact. Alignment maintained. Anterior/superior patellar spurring. Trace joint effusion. XR/XR knee standing BI IMPRESSION: 1. Right total knee prosthesis. Hardware appears intact. 2. Moderate degenerative changes on single AP view of the left knee.
== END 2023-02-13 07:55 | disposition home or self-care (01) ==
LOC: HO.HOSX 07:54
PROVIDERS: Visit Provider Physician Assistant
DX: Z96.651 Presence of right artificial knee joint (principal); M25.562 Pain in left knee
CPT/HCPCS: 73560; 73565

== ENCOUNTER 2023-02-13 11:31 | Outpatient (AMB) | payer MEDICARE, OTHER, SELFPAY ==
--- NOTE | 2023-02-13 11:33 | MHC.OFFVIS ---
Intake Vital Signs 02/13/23 11:42 Height 5 ft 7.5 in Weight 174 lb BMI 26.8 Intake Visit Reasons: OV- Yearly TKA follow up Intake Note: Leonela a 67 year old female presents today for a follow up of right knee s/p TKA on 01/16/2020. Patient reports that she is doing well, at times with prolong sitting she will feel a pop with getting up to ambulate. Allergies No Known Allergies Allergy (Verified 02/13/23 11:47) HPI OV- Yearly TKA follow up HPI Details 67-year-old female who returns to the office today for an yearly follow-up of right TKA, 01/15/23. She states she experiences occasional popping in her right knee with prolonged sitting and ambulation but is doing well overall. She has no other concerns today. [facility] Medical History No significant past medical history Surgical History H/O colonoscopy History of bunionectomy S/P rotator cuff repair Social History Household Members: Significant Other Household Members Other:: mother Housing: House Are you a primary progressive care unit registered nurse to a significant other at home: No Do you presently have visiting nurse or other home services: No Alcohol intake: current Alcohol intake frequency: holidays/special occasions only Comment: pt sleeping Second Hand Smoke Exposure: No service: Yes Current occupational status: retired Current occupation: rt handed Review of Systems Const All systems reviewed & are unremarkable except as noted in HPI and below Physical Exam Vital Signs: BMI result Body Mass Index 26.8 Const General: cooperative and no acute distress Orientation/consciousness: patient oriented x3 Resp Effort & Inspection: normal respiratory effort and able to speak in complete sentences Cardio Peripheral pulses: Peripheral pulses 2+ throughout Neuro General: patient oriented x3 Extrem Other: Right knee: Normal to inspection. Incision well healed. ROM 0-115 degrees. Calf supple, nontender. NVI. Results Reviewed Results Reviewed: Xrays were obtained in the office today and personally reviewed by me of the right knee show intact prosthesis without signs of loosening Assessment & Plan Assessment & Plan (1) Status post right knee replacement: Code(s): Z96.651 - Presence of right artificial knee joint Plan She will continue to maintain her ROM and quad strength. She is proactive and has no difficulty with daily activities. If symptoms persist or worsens, patient will contact the office, otherwise follow-up as needed. Orders: Orders XR knee RT 2V Today M25.569 - Pain in unspecified knee XR knee standing BI Today M25.561 - Pain in right knee, M25.562 - Pain in left knee Patient Instructions: Scribed for Connie Ann PA-C, by Boone Galan biomedical engineering professor, on 02/13/2023 at 11:30 AM EST. I, Connie Ann PA-C, have personally reviewed and agree with the information entered by the scribe. Coding Level of Care Code Est Pt Level 3 (69783) Diagnoses Status post right knee replacement Z96.651
[2023-02-13 11:42] VITALS: BMI 26.8
== END 2023-02-13 12:43 | disposition home or self-care (01) ==
PROVIDERS: Visit Provider Physician Assistant
DX: Z47.1 Aftercare following joint replacement surgery (principal); Z96.651 Presence of right artificial knee joint
CPT/HCPCS: 99213

== ENCOUNTER 2025-02-13 10:59 | Outpatient (AMB) | payer MEDICARE, OTHER, SELFPAY ==
--- OUTSIDE RECORDS SUMMARY | 2025-02-10 23:59 | XMS_ITS | Continuity of Care Document ---
Author Organization [facility] Address [address] [place] [id number] [facility] Name Relationship Address Phone MILENA MUNSONITO Other Unknown Unavailable Care Team Providers Care Cop Winder Name Role Phone Marianne Mckeon MD Primary Care Physician Encounter [facility] Date(s): 01/11/25 - 02/10/25 [facility] [address] [place] [id number]- Attending Physician: Godwin Ellis Admitting Physician: Godwin Ellis Referring Physician: Godwin Ellis Encounter Type: Triage Allergies, Adverse Reactions, Alerts No Known Allergies Social History Social History Type Response Sex Sex Representation Female (finding) Patient Care team information Care Team Personnel Name: Marianne Mckeon MD Position: Reference Physician Member Role: PCP Address: [address] [place] [id number]- Telecom: Care Team Related Persons Name: NESS MUNSON Insurance Providers Guarantor name: SERJIO MARQUES Health Plan Information #: 1 Payer: MEDICARE B Payer Identifier: NA Member Number: [id number] Group Number: NA Subscriber Identifier: NA Relationship to Subscriber: self Coverage Type: NA Coverage Verification Date: NA Telecom: NA Address: NA Health Plan Information #: 2 Payer: [facility] [employer] Payer Identifier: NA Member Number: [id number] Group Number: [id number] Subscriber Identifier: NA Relationship to Subscriber: self Coverage Type: Commercial Indemnity Coverage Verification Date: NA Telecom: NA Address:
--- NOTE | 2025-02-13 11:03 | A.OFFVIS_ITS ---
Intake Visit Reasons: Newprob-Left knee pain Intake Note: Leonela is a 69 year old female who presents today as an established patient, new problem visit to evaluate left knee pain. Patient reports her pain has been present since before . States that she is unsure if this was from when she was kneeling down. Denies any traumatic injury. Her pain is located at the posterior aspect and travels up and down her leg. Her discomfort is worse at night. No previous treatment, however she has been performing at home stretches which has helped. History of cortisone injections in the past. Allergies No Known Allergies Allergy (Verified 02/13/23 11:47) Medication List - Last Reconciled 02/13/25 by Connie Ann PA-C acetaminophen 650 mg (2 x 325 mg) PO Q6H 30 days calcium carbonate-vitamin D3 600 mg-10 mcg (400 unit) (Calcium 600 + D(3)) 1 tab PO BID zinc 50 mg PO DAILY HPI Comments Details: History of Present Illness The patient is a 69 year old female presenting with left knee pain that started right before . She reports a history of fluid in the knee that was previously aspirated. The current episode may have been precipitated by pressure on the knee while getting up. The pain is located mostly in the posterior aspect of the knee and is worse at night. She typically sleeps in a position, and the pain and stiffness are exacerbated when she tries to extend the leg at night. She has to sleep on her back with support behind her knee for relief. Functionally, she experiences initial stiffness with ambulation that improves once she gets moving. She reports navigating stairs one step at a time due to the pain. Her past surgical history includes a right knee replacement and a left shoulder arthroscopy. She denies any history of diabetes. She dislikes taking medication but has used 800 mg of Motrin previously for shoulder pain with good effect. Social History - Functional Status: The patient reports limitations in daily activities due to her knee pain. - She ambulates with initial stiffness and ascends and descends stairs one step at a time. 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 [facility] Medical History No significant past medical history Surgical History H/O colonoscopy History of bunionectomy S/P rotator cuff repair Social History Household Members: Significant Other Household Members Other:: mother Housing: House Are you a primary nurse behavioral health care to a significant other at home: No Do you presently have visiting nurse or other home services: No Alcohol intake: current Alcohol intake frequency: holidays/special occasions only Comment: pt sleeping Second Hand Smoke Exposure: No service: Yes Current occupational status: retired Current occupation: rt handed Review of Systems Narrative Review of Systems - Musculoskeletal: Reports left knee pain, primarily in the posterior aspect, which is worse at night. - Reports stiffness in the left knee, especially when attempting to straighten it. - Reports past history of left knee effusion. - Constitutional: Denies diabetes. Physical Exam Extrem Other: Left knee normal to inspection with no erythema or joint effusion. She has full range of motion with significant crepitus laterally. No ligamentous laxity. There is fullness posterior to the knee which may represent a Easley's cyst. Calf is supple and nontender neurovascularly intact. Office Procedures AMB Joint Injection/Aspiration Joint Injection/Aspiration Primary Site: Left Knee Prep: site was prepped using aseptic technique, ethochloride spray was applied and injection warnings given Injected: 40 mg of, Decadron, with 3 mL of, 1% plain Lidocaine, 0.25% Bupivacaine and in the joint Approach Used: anterolateral Procedure: The patient tolerated the procedure well and there was some relief with the local anesthesia Coding 13832 - Glenohumeral/Tronchanteric Bursa/Intraarticular Procedure code (CPT) selection complete Assessment & Plan Assessment & Plan (1) Osteoarthritis of left knee: Code(s): M17.12 - Unilateral primary osteoarthritis, left knee Category: Medical Plan 1. Left Knee Osteoarthritis The patient's symptoms are attributed to left knee osteoarthritis, with radiographic evidence showing arthritis predominantly behind the kneecap. The left knee's appearance on X-ray is noted to be similar to her right knee prior to its replacement. For immediate management, the patient agreed to and will receive a cortisone injection into the left knee. The patient will monitor her symptoms and functional limitations until the spring. A discussion regarding total knee arthroplasty will occur at that time if she feels her daily activities remain significantly limited. Patient was informed and verbally consented to the use of an ambient scribe for clinic note documentation during this visit. Orders: Orders XR knee LT 3V Today M25.562 - Pain in left knee Coding Level of Care Code Est Pt Level 3 (56421) Add On Problem Visit Only Diagnoses Osteoarthritis of left knee M17.12 CPT Codes Coding - Joint 7: 48462 - Glenohumeral/Tronchanteric Bursa/Intraarticular ([id number])
--- OUTSIDE RECORDS SUMMARY | 2025-02-13 15:39 | XMS_ITS | Clinical Summary ---
Author Organization [facility] ity Address [address] [place] [address] Care Team Providers Care Manager Dialysis Name Role Phone Unavailable Primary Care Provider Unavailabl e Social History Tobacco Use Types Packs/Day Years Used Date Smoking Tobacco: Never Assessed Comments Unknown Sex and Gender Information Value Date Recorded Sex Assigned at Not on file Legal Sex Female 10:38 PM EST Gender Identity Not on file Sexual Orientation Not on file Plan of Treatment Health Maintenance Due Date Last Done Comments Breast Cancer Screening 1955 DTaP,Tdap,and Td Vaccines (1 - Tdap) 1976 Pneumococcal Vaccine: 50+ Ye ars (1 of 1 - PCV) 06/06/2007 Zoster Vaccines (1 of 2) 06/06/2007 Depression Screening 03/02/2024 COVID-19 Vaccine (1 - 2024-2 6 season) 2024 Influenza Vaccine (#1) 2024 RSV Immunization Adult Patie nts (1 - 1-dose 75+ series) 2032 HIB Vaccines Aged Out No longer eligi ble based on patient's age to complete this topic HPV Vaccines Aged Out No longer eligi ble based on patient's age to complete this topic Hepatitis A Vaccines Aged Out No long er eligible based on patient's age to complete this topic Hepatitis B Vaccines Aged Out No long er eligible based on patient's age to complete this topic IPV Vaccines Aged Out No longer eligi ble based on patient's age to complete this topic MMR Vaccines Aged Out No longer eligi ble based on patient's age to complete this topic Meningococcal ACWY Vaccine Aged Out N o longer eligible based on patient's age to complete this topic Meningococcal B Vaccine Aged Out No l onger eligible based on patient's age to complete this topic RSV Immunization Patients Un malcom 20 months Aged Out No longer eligible b ased on patient's age to complete this topic Varicella Vaccines Aged Out No longer eligible based on patient's age to complete this topic
== END 2025-02-13 11:47 | disposition home or self-care (01) ==
PROVIDERS: Visit Provider Physician Assistant
DX: M17.12 Unilateral primary osteoarthritis, left knee (principal)
CPT/HCPCS: 20610; 99213

== ENCOUNTER → 2025-02-13 11:01 | Outpatient (BNV) | payer MEDICARE, OTHER, SELFPAY | PROVIDERS: Visit Provider Radiology Diagnostic Ultrasound | DX: M17.12 Unilateral primary osteoarthritis, left knee (principal) | CPT/HCPCS: 73562 ==

== ENCOUNTER 2025-02-13 11:02 | Outpatient (REF) | payer MEDICARE, OTHER, SELFPAY ==
--- NOTE | ~2025-02-13 | XR_ITS ---
EXAMINATION: XR KNEE, LEFT CLINICAL INFORMATION: M25.511 - Pain in left knee COMPARISON: None available. TECHNIQUE: AP bilateral knees one view Two views of the left knee. FINDINGS: Left knee: Severe patellofemoral arthritis. Mild-moderate lateral, mild medial compartment arthritis. Diffuse bone demineralization. No visible acute fracture or dislocation. Small suprapatellar joint fluid. Right knee: Total knee arthroplasty present. No suspicious perihardware lucency. No acute fracture is seen. XR/XR knee LT 3V IMPRESSION: Left knee: Arthritis as above. Electronically signed by: Michael Cortez MD 02/13/2025 02:48 PM [facility]
== END 2025-02-13 11:03 | disposition home or self-care (01) ==
LOC: HO.HOSX 11:02
PROVIDERS: Visit Provider Physician Assistant
DX: M17.12 Unilateral primary osteoarthritis, left knee (principal)
CPT/HCPCS: 20610; 73562; 99212; J0665; J1100; J2003